=== PATIENT | female | born 1995 | race Caucasian/White ===

== ENCOUNTER 2019-08-04 12:04 | Outpatient (CLI) | payer OTHER, SELFPAY ==
[2019-08-04 13:01] LABS: RBC Urine None Seen (0-5/HPF)
[2019-08-04 13:02] LABS: Bilirubin Urine UA NEGATIVE (NEGATIVE); Color Urine UA YELLOW; Glucose Urine UA NEGATIVE (Negative); Ketones Urine UA NEGATIVE (NEGATIVE); Leukocyte Esterase Urine UA 2+ (NEGATIVE); Nitrite Urine UA NEGATIVE (Negative); Occult Blood Urine UA NEGATIVE (Negative); Protein Urine UA NEGATIVE (Negative); Urobilinogen Urine UA 0.2 E.U./dL (0.2)
[2019-08-04 13:03] LABS: Appearance Urine UA CLOUDY
[2019-08-04 13:11] LABS: Squamous Epithelial Cell Urine 10-30 /HPF (0-5/HPF); WBC Urine 1-5/HPF (0-5/HPF)
[2019-08-04 13:12] LABS: Amorphous Sediment Urine 2+; Bacteria Urine Moderate (10-30); Culture Indicated Urine Cult Not Indicated; Urine Comments CLUE CELLS
--- NOTE | 2019-08-04 13:30 | P.TNLD_ITS ---
Visit Information Visit Information Date of evaluation: 08/04/19 On-call OB Provider: Ranjana Robertson Reason for Evaluation: Yes non-stress test non-stress test reason: other (Possible vaginal bleeding) Review of Systems Review of Systems Narrative: Patient states that she had intercourse a couple days ago. Today she had 2 episodes of some red blood when she wiped after urinating. She has not had any bleeding since. No contractions. Good movement. No headaches, scotomata, epigastric pain. Patient did state she has some difficulty emptying her bladder earlier and mild burning with urination. ROS: Yes All systems reviewed with the patient and are negative except as otherwise documented Exam Vital Signs (past 8 hours): Blood pressure 120/72, pulse of 84, temperature 98.0? Narrative Exam Narrative: Abdomen is soft, nontender. Extremities without edema and nontender. Objective Labs Labs: Laboratory Results - last 24 hr 08/04/19 12:45 Urine Color Yellow Urine Appearance Cloudy Urine pH 7.0 Ur Specific [place] 1.010 Urine Protein Negative Urine Glucose (UA) Negative Urine Ketones Negative Urine Occult Blood Negative Urine Nitrate Negative Urine Bilirubin Negative Urine Urobilinogen 0.2 Ur Leukocyte Esterase 2+ H Urine RBC None seen Urine WBC 1-5/hpf Ur Squamous Epith Cells 10-30 /hpf H Amorphous Sediment 2+ Urine Bacteria Moderate (10-30) H Ur Culture Indicated? Cult not indicated Micro UA Comment Clue cells Evaluation Evaluation Baseline heart rate: 130 Variability: Moderate (11-25) monitor accelerations: Present monitor decelerations: Absent Contraction Frequency (minutes): 0 Category of Tracing: I Cervical dilation (cm): 0 Cervical effacement (%): 0 station: -4 Laboratory results: Laboratory Tests 08/04/19 12:45 Urine Color Yellow Urine Appearance Cloudy Urine pH 7.0 Ur Specific [place] 1.010 Urine Protein Negative Urine Glucose (UA) Negative Urine Ketones Negative Urine Occult Blood Negative Urine Nitrate Negative Urine Bilirubin Negative Urine Urobilinogen 0.2 Ur Leukocyte Esterase 2+ H Urine RBC None seen Urine WBC 1-5/hpf Ur Squamous Epith Cells 10-30 /hpf H Amorphous Sediment 2+ Urine Bacteria Moderate (10-30) H Ur Culture Indicated? Cult not indicated Micro UA Comment Clue cells Diagnosis, Plan/Disposition Final Diagnosis (1) Vaginal bleeding in : Current Visit: Yes Status: Acute Plan/Disposition Plan: Patient with 2 episodes of bright red blood when wiped after urinating no evidence of labor. Vaginal discharge is white without any red tinge to it. UA does not reveal any evidence of infection. Precautions reviewed with the patient to return for increasing abdominal pain, increased inch bleeding, decreased movement. OB Disposition: home
== END 2019-08-04 13:38 | disposition home or self-care (01) ==
LOC: LABOR 12:16 → OB 08-05 09:38
PROVIDERS: Referring Provider Specialist; Visit Provider Specialist
DX: O46.93 Antepartum hemorrhage, unspecified, third trimester (principal); Z3A.30 30 weeks gestation of pregnancy
CPT/HCPCS: 59025; 81001; G0378; G0379

== ENCOUNTER → 2019-09-10 08:36 | Outpatient (CLI) | payer OTHER, SELFPAY ==
[2019-09-11 10:27] LABS: Strep Grp B PCR NEG for Grp B Strep
== END ==
PROVIDERS: Visit Provider Obstetrics & Gynecology
DX: Z34.93 Encounter for supervision of normal pregnancy, unspecified, third trimester (principal); Z3A.36 36 weeks gestation of pregnancy
CPT/HCPCS: 87653

== ENCOUNTER → 2019-09-30 09:52 | Outpatient (CLI) | payer OTHER, SELFPAY ==
[2019-09-30 19:50] LABS: COVID19 Sendout Not Detected
== END ==
PROVIDERS: Visit Provider Registered Nurse
DX: Z34.90 Encounter for supervision of normal pregnancy, unspecified, unspecified trimester (principal)
CPT/HCPCS: 87635

== ENCOUNTER 2019-10-03 05:47 | Inpatient (IN) | payer OTHER, SELFPAY ==
--- NOTE | 2019-09-25 16:53 | P.HPOB_ITS ---
OB HPI History of Present Condition Chief complaint: [id number] REPEAT Narrative: Hilton Munguia is a 23 year old female with an ANDRES of 10/08/2019 by LMP and consistent with 11 week ultrasound who is being admitted at 39 weeks for repeat section. She has a history of a prior section for f etal intolerance of labor. She desired repeat section for delivery. Her has been uncomplicated. FORMERLY [facility], [facility] Medical History Eczema of both upper extremities (Acute) Post depression (Acute) Surgical History History of primary section (Acute ~2017) [place] teeth removed (Acute ~2017) Family History Father Household includes adoptive father Mother Twin Grandfather Myocardial infarction Grandmother No problems noted. Social History marital status: household members: children pets and animals: No education level: high school occupational status: unemployed current occupational exposures/hazards: No special crystal needs: No Smoking Status: Never smoker Meds Home Medications and Allergies Home Medications Medication Instructions Recorded Confirmed Type prenat.vits,pallavi,wjs-idht-wlwum 1 tab PO DAILY 08/13/19 09/25/19 History Allergies Allergy/AdvReac Type Severity Reaction Status Date / Time No Known Drug Allergies Allergy Verified 09/25/19 08:06 Exam Vital Signs (past 8 hours): BP 122/72 Narrative Exam Narrative: General: Well-appearing gravid female Heart: Regular rate rhythm, negative for audible murmur Lungs clear to auscultation bilaterally Abdomen gravid, nontender. Fundal height 39 cm. FHR auscultated in 120s. Fetus vertex by Dominic maneuver Extremities negative for edema Assessment and Plan Assessment and Plan Assessment and Plan narrative: 39 week . History of prior section. Plan: Repeat section scheduled for 10/02/2018. I reviewed no food after midnight, clear liquids okay up to 4 hours prior to the procedure SCDs in OR. Will give Ancef for preoperative prophylaxis. section procedure reviewed. Verbal and written consent obtained.
[2019-10-03 06:20] VITALS: BP 124/72
[2019-10-03 06:29] LABS: Add Manual Diff / Slide Review NO; Basophils Absolute Auto 0 /uL (0-100); Basophils Percent Auto 0.3 % (0-2); Eosinophils Absolute Auto 100 /uL (0-450); Eosinophils Percent Auto 0.8 % (2-4); Hematocrit 32.2 % (36-46); Hemoglobin 11.4 g/dL (12.0-16.0); Lymphocytes Absolute Auto 1600 /uL (1100-4500); Lymphocytes Percent Auto 16.2 % (25-40); Mean Corpuscular HGB Conc 35.5 % (30-36); Mean Corpuscular Hemoglobin 31.8 PG (26-34); Mean Corpuscular Volume 89.6 fL (80-100); Monocytes Absolute Auto 700 /uL (0-900); Monocytes Percent Auto 6.7 % (3-14); Neutrophils Absolute Auto 7600 /uL (1500-7000); Platelet Count 150 X10^3/uL (150-400); Red Blood Cell Count 3.59 X10^6/uL (4.0-5.2); Red Cell Distribution Width 13.6 % (11.6-14.8); White Blood Cell Count 10.1 X10^3/uL (4.5-11.0)
[2019-10-03] MEDS: LACTATED RINGERS 1,000 ML 100 ML IV ×2 (06:48→10:41)
--- NOTE | 2019-10-03 07:19 | PM.PREOP ---
Pre-operative Note Interval Note History & Physical reviewed/Exam performed by Physician: Yes Changes to H&P: No H&P completed within 30 days and has changed as indicated here:: No change in H&P. NST this am reactive, baseline 125, moderate variability, no decelerations
--- NOTE | 2019-10-03 07:24 | SUR.OPER ---
Supine on Padded OR bed, head on pillow, safety belt at thigh, arms secured on padded arm boards at <90 degrees abduction. Bump under right buttock. Legs uncrossed with pillow under knees, gel pad to heels, tape over blanket to lower legs.
[2019-10-03] MEDS: CEFAZOLIN 2 GM/100 ML FROZ.PIGGY IV (07:50)
[2019-10-03] MEDS: SODIUM CHLORIDE 0.9% 1,000 ML 100 ML IV (08:10)
--- NOTE | 2019-10-03 08:21 | SUR.OPER ---
Viable male delivered at 0813. Cord blood x2 and placenta sent with L&D RN, Tiana.
[2019-10-03] MEDS: ACETAMINOPHEN IV 1,000 MG/100 ML VIAL 400 MG IV (08:27)
[2019-10-03 09:10] VITALS: BP 116/56; PULSE 73; RESP 23; TEMP 36.1; O2SAT 97
--- NOTE | 2019-10-03 09:12 | PM.OP.1 ---
Operative Date/Time/Diagnoses Date of procedure: 10/03/19 Time of procedure: 09:12 Pre-op diagnosis: 39 week , prior , desired repeat for delivery Post-op diagnosis: same Procedure & Clinicians Procedure: Repeat lower transverse section Same procedure as scheduled: Yes Indications: Thirty-nine week , history of prior , desired repeat for delivery Surgeon: Meena Meadows Negative Developer: Ranjana Robertson Anesthesia Type: Spinal Operative Notes Findings: Viable baby boy delivered. Apgars 9 and 9. Weight 8lb3oz. Closure Type: primary Specimen(s): other (Cord blood to lab) Applied: catheter (Gallardo to gravity) Estimated Blood Loss (mL): 700 Blood products transfused: none Procedure in detail: IV fluids: 1800 ml crystalloid Urine output: 100 mL Description of procedure: The patient was transferred from the center to the operating room. Spinal anesthesia was placed by the anesthesiologist. She was placed in the supine position. FHR auscultated, was normal at 130 beats/minute after the spinal anesthesia. Gallardo catheter was placed and she was prepped and draped in routine sterile fashion. . Time-out was taken and the patient procedure was identified. Anesthesia level was tested and was adequate. A Pfannenstiel skin incision was made in the lower abdomen through her prior transverse skin incision and carried down to the level of the fascia. The fascia was incised in the midline and was extended transversely. The superior and inferior edges of the fascia were elevated and dissected off the rectus muscles with sharp and blunt dissection. The muscles were already with a diastasis and there was an opening in the peritoneum superiorly. The muscles were further with blunt dissection. The parietal peritoneum opening was further extended with blunt dissection. There was noted to be some bleeding from a vessel at the edge her upper left muscles where the peritoneum was adherent in this area. A uvhytu-oo-gfeuj suture of 3 0 Vicryl was placed and hemostasis obtained. The bladder blade was placed. The visceral peritoneum was elevated off the lower uterus, incised and the bladder flap was bluntly created. The bladder blade retractor was placed. The lower uterine segment was noted to be already somewhat thinned out, with the vertex palpable beneath it. A transverse incision was made in the lower uterus, with final entry performed bluntly with the finger. The incision was extended transversely with blunt dissection. Clear fluid was noted. The head was not engaged, floating. It was elevated to the uterine incision but could not be delivered through the incision with fundal assistance. The kiwi vacuum was placed and the head was then delivered with ease through the incision with the fundal pressure. Anterior and posterior shoulders followed by the body were delivered without difficulty with fundal assistance. The infant was bulb suctioned and cried spontaneously. Cord was clamped and cut and the was handed off to respiratory therapy who was present for delivery. Cord blood was obtained a specimen. The placenta was manually removed. It appeared intact with a normal three-vessel cord. The uterus was swept clean of adherent clots and membranes. The uterus was brought through the abdominal incision and closed in 2 layers with 0 Vicryl, the 1st layer being in running locking continuous fashion and the 2nd layer being in a vertical imbricating type fashion. There was some persistent light bleeding at the left edge of the incision which was controlled with a cfpmiu-zh-xgfez suture of 0 Vicryl. Hemostasis was noted. The tubes and ovaries were inspected and noted to be normal. Posterior to the uterus was suction of some minimal fluid and blood. The uterus was placed back into the maternal abdomen. The paracolic gutters were inspected and wiped of some minimal blood and fluid. The anterior cul-de-sac was inspected and some minimal clot was removed. The uterine incision was re- inspected. There was some persistent light bleeding just inferior, adjacent to the incision on the left, in an area of a small superficial separation in the uterine muscle in this area. Hemostasis was obtained after placing a vfgksv-oz-jeaxg suture of 3 Vicryl. The pelvis was irrigated. Repeat inspection showed continued hemostasis. The abdomen was closed. The muscles were reapproximated with 3 interrupted sutures of 0 Vicryl. The fascia was closed with running continuous suture of 0 Vicryl. The subcutaneous tissue was irrigated. Hemostasis was noted. The subcutaneous tissue was reapproximated by reapproximating Akila's fashion with running 3-0 Vicryl. The skin was closed with a subcuticular suture of 4-0 Monocryl. Steri-Strips and sterile Aquacel dressing was placed. She tolerated the procedure well and went to the recovery room in stable condition. Complications: none Post-operative Condition: stable Disposition: PACU Plan for aftercare: She will be transferred to the Center for routine postoperative care/ care.
[2019-10-03 09:15] VITALS: BP 115/63; PULSE 70; RESP 13; TEMP 36.2; O2SAT 96
[2019-10-03 09:20] VITALS: BP 113/67; PULSE 63; RESP 12; TEMP 36.1; O2SAT 96
[2019-10-03 09:25] VITALS: BP 129/70; PULSE 67; RESP 19; TEMP 36.1; O2SAT 97
[2019-10-03 09:36] VITALS: BP 121/72; PULSE 64; RESP 16; TEMP 36.1; O2SAT 98
--- NOTE | 2019-10-03 09:47 | SUR.PHASEI ---
Patient taken to center with all belongings. Left in stable condition with receiving RN at bedside.
[2019-10-03] MEDS: miSOPROStoL 200 MCG TABLET 1000 MCG PR (10:45)
[2019-10-03] MEDS: METHYLERGONOVINE 0.2 MG/ML VIAL IM (11:32)
[2019-10-03] MEDS: TRANEXAMIC ACID 1,000 MG in SODIUM CHLORIDE 0.9% 100 ML 400 ML IV ×2 (11:33→12:51)
[2019-10-03] MEDS: CARBOPROST 250 MCG/ML AMPUL IM ×2 (11:47→12:53)
[2019-10-03] MEDS: ONDANSETRON 4 MG/2 ML INJ IV (12:05)
[2019-10-03] MEDS: LACTATED RINGERS 500 ML 1000 ML IV (12:06)
[2019-10-03 12:13] LABS: Add Manual Diff / Slide Review NO; Basophils Absolute Auto 0 /uL (0-100); Basophils Percent Auto 0.2 % (0-2); Eosinophils Absolute Auto 0 /uL (0-450); Eosinophils Percent Auto 0.1 % (2-4); Hematocrit 33.7 % (36-46); Hemoglobin 11.5 g/dL (12.0-16.0); Lymphocytes Absolute Auto 1100 /uL (1100-4500); Lymphocytes Percent Auto 6.9 % (25-40); Mean Corpuscular Hemoglobin 31.5 PG (26-34); Mean Corpuscular Volume 92.4 fL (80-100); Monocytes Absolute Auto 800 /uL (0-900); Monocytes Percent Auto 4.8 % (3-14); Neutrophils Absolute Auto 13700 /uL (1500-7000); Platelet Count 162 X10^3/uL (150-400); Red Blood Cell Count 3.65 X10^6/uL (4.0-5.2); Red Cell Distribution Width 13.5 % (11.6-14.8); White Blood Cell Count 15.6 X10^3/uL (4.5-11.0)
[2019-10-03 12:28] LABS: Prothrombin Time 11.2 SECONDS (10.1-12.7)
[2019-10-03 12:31] LABS: PTT Partial Thromboplastin Tim 46 SECONDS (26.4-36.2)
--- NOTE | 2019-10-03 13:52 | PM.PNPO.1 ---
Subjective Subjective Date Patient Seen: 10/03/19 Time Patient Seen: 10:30 Interval history: I was on floor, notified this patient had heavier than normal vaginal bleeding, soon after coming from the PACU, after her repeat section delivery this a.m. I have been here since that time. At the time of her surgery after the placenta delivered her uterus was fairly atonic, but responded well to uterine massage and routine IV oxytocin. A dose of Methergine 0.2 mg IM was also given in the OR. Her uterus was closed and there was good hemostasis. Her lower uterine segment had felt somewhat boggy after placement of the 1st layer on the uterus and massage of the lower uterine segment was performed. Since she had a little oozing in a few areas of the uterine incision, the Methergine was also given at that time. After the 2nd layer was placed and 2 itnyqm-ul-xkubn sutures, she had excellent hemostasis on the uterus and overall and the abdomen was closed. With fundal pressure before leaving the OR, she only had a small amount of blood expressed. Digital vaginal exam showed no additional blood clots. On receiving her on the floor, the nurse noted a large amount of blood on her pad with several clots. She subsequently soaked 2 half pads as well. On exam her fundus was firm, U -1 which was lower than in the OR. Digital exam showed a 2 cm dilated cervical os with some small clot palpated at the cervical os. With fundal pressure a small amount of clot only was obtained and small amount of additional blood. However with observation she did have some constant trickling of bright red blood. She was already on oxytocin IV, 20 units in her IV fluids. I gave the patient misoprostol 1000 mcg per rectum, followed by tranexamic acid g IV when she continued with heavier than normal bleeding, going through a half a pad every 10-15 minutes. Blood through the vagina also intermittently visualized trickling out. Hemabate 250 mcg given and an additional dose of Methergine 0.2 mg IM given at 11:30 a.m. Repeat vaginal exam, cervix still felt approximately 2 cm dilated. I no longer felt any clots with sleeping a finger through the cervix. Bleeding was never heavy again likely initial large amount on the pad but due to intermittent trickling, heavier than normal lochia, she subsequently also received a 2nd dose of tranexamic acid 1 g IV and additional Hemabate 250 mcg at same time. Her IV access needed to be replaced, prior to her 1st TXA dose. At this time to IVs were placed, an 18 gauge and a 20 gauge IV. Labs were drawn off the IV at that time which included CBC, PT PTT. Her hemoglobin was stable at 11.4, plts were 162, stable. PT 11.2 (normal), PTT 46 (mildly elevated). Patient had an episode of nausea with emesis after the Hemabate which improved after Zofran. Otherwise she has felt well throughout this time. Vaginal bleeding/lochia appears normal now. Vital signs have remained normal. Last VS Temp 100.1 (s/p hemabate), BP 125/76 Pulse 74. RR 16 Impression: hemorrhage, status post . Estimated additional blood loss approximately 800 mL Plan: Repeat hemogram at 3:00 p.m. for new baseline Continue close observation. Will continue Methergine for 24 hours. Toradol discontinued. Marco A Gallardo catheter in until a.m. Exam Vital Signs (past 8 hours): - 10/03/19 06:20 10/03/19 09:10 10/03/19 09:15 Temperature 97.0 F L 97.2 F L Pulse Rate 73 70 Respiratory Rate 23 13 Blood Pressure 124/72 116/56 L 115/63 Pulse Oximetry 97 96 10/03/19 09:20 10/03/19 09:25 10/03/19 09:36 Temperature 97.0 F L 96.9 F L 97.0 F L Pulse Rate 63 67 64 Respiratory Rate 12 19 16 Blood Pressure 113/67 129/70 121/72 Pulse Oximetry 96 97 98 Oxygen Delivery Method Room Air Narrative Exam Narrative: General: Well-appearing female Abdomen: Soft, nontender, nondistended. Fundus U -1, firm Vaginal exam is cervix 2 cm dilated, no clots currently palpable at the cervical os. No clots in the vagina. On pad bleeding is now only minimal amount over last 30+ minutes. Now normal lochia Objective Labs Result Diagrams: 10/03/19 11:20 Labs: Laboratory Results - last 24 hr 10/03/19 10/03/19 10/03/19 06:05 06:05 11:20 WBC 10.1 RBC 3.59 L Hgb 11.4 L Hct 32.2 L MCV 89.6 MCH 31.8 MCHC 35.5 RDW 13.6 Plt Count 150 Neut % (Auto) 76.0 H Lymph % (Auto) 16.2 L [place] % (Auto) 6.7 Eos % (Auto) 0.8 L Baso % (Auto) 0.3 Neut # (Auto) 7600 H Lymph # (Auto) 1600 [place] # (Auto) 700 Eos # (Auto) 100 Baso # (Auto) 0 PT 11.2 INR 1.0 APTT 46 H Blood Type A Positive Antibody Screen Negative Crossmatch See Detail 10/03/19 11:20 WBC 15.6 H D RBC 3.65 L Hgb 11.5 L Hct 33.7 L MCV 92.4 MCH 31.5 MCHC 34.0 RDW 13.5 Plt Count 162 Neut % (Auto) 88.0 H Lymph % (Auto) 6.9 L [place] % (Auto) 4.8 Eos % (Auto) 0.1 L Baso % (Auto) 0.2 Neut # (Auto) 72366 H Lymph # (Auto) 1100 [place] # (Auto) 800 Eos # (Auto) 0 Baso # (Auto) 0 PT INR APTT Blood Type Antibody Screen Crossmatch Assessment & Plan Post-op Assessment and plan (1) hemorrhage, delivered: Assessment and Plan narrative: Improved. Patient stable. Continue Methergine every 6 hours for 24 hours. Toradol discontinued. Continue close observation. If her bleeding continues to remain normal, then will let her resume a normal diet. Leave Gallardo in until the a.m.. Postoperative Procedures: Procedures Operation Date: 10/03/19 07:45 Actual Procedures Side Surgeon p Repeat Section Meena Meadows MD Time Spent With Patient Time with patient: Greater than 35 minutes
[2019-10-03 17:16] LABS: Hematocrit 28.8 % (36-46); Mean Corpuscular HGB Conc 34.8 % (30-36); Mean Corpuscular Hemoglobin 31.1 PG (26-34); Mean Corpuscular Volume 89.3 fL (80-100); Platelet Count 143 X10^3/uL (150-400); Red Blood Cell Count 3.23 X10^6/uL (4.0-5.2); Red Cell Distribution Width 13.5 % (11.6-14.8); White Blood Cell Count 13.5 X10^3/uL (4.5-11.0)
[2019-10-03] MEDS: diphenhydrAMINE 50 MG/ML VIAL 25 MG IV (22:29)
[2019-10-04] MEDS: IBUPROFEN 600 MG TABLET PO ×2 (06:37→13:00)
[2019-10-04 06:47] LABS: Hematocrit 26.1 % (36-46); Hemoglobin 9.4 g/dL (12.0-16.0)
--- NOTE | 2019-10-04 14:31 | PM.OBPN.1 ---
Subjective - OB Subjective Patient comments: no complaints, pain well controlled and tolerating diet baby status: doing well and nursing well feeding status: exclusively breast feeding Narrative: Hilton reports that she feels well. Gallardo catheter removed this a.m. and she has ambulated twice to the bathroom, voided twice without problems. Lochia has now remained normal. Ambulating without problems. Tolerating a regular diet, no nausea. No flatus yet. Denies fever or chills. Date Patient Seen: 10/04/19 Time Patient Seen: 08:50 Exam Vital Signs (past 8 hours): T max 100.0 immediately postop, last temp 99.4, BP 124/75, pulse 80, RR 18 Oxygen Delivery Method Room Air Narrative Exam Narrative: General: Well-appearing female Abdomen: Soft, nontender, nondistended. Dressing dry, intact. No erythema noted around the dressing or otherwise. Fundus U-1, firm, nontender Extremities: Trace pedal edema. No calf tenderness Objective Labs Result Diagrams: 10/04/19 06:29 Labs: Laboratory Results - last 24 hr 10/03/19 10/04/19 16:18 06:29 WBC 13.5 H RBC 3.23 L Hgb 10.0 L 9.4 L Hct 28.8 L 26.1 L MCV 89.3 D MCH 31.1 MCHC 34.8 RDW 13.5 Plt Count 143 L Assessment & Plan Assessment and Plan (1) S/P repeat low transverse : Start date: 10/03/19 Status: Acute Assessment and plan: POD 1, doing well today. Awaiting GI return. Only using ibuprofen for incisional discomfort. She desires discharge to home today if able, since home with her daughter, and due to Covid 19 situation/risk. Will see how she does through the day, and if continues to do well, then will discharge home. Advised her to increase ambulation. Current Visit: Yes (2) hemorrhage, delivered: Status: Acute Assessment and plan: No further heavy bleeding, since controlled with medication yesterday. Lochia has remained normal. I suspect likely the cause was an atonic lower uterine segment, however she did have a mildly elevated PTT, despite only a mildly low H/H, and now reports possible history of some heavier bleeding status post her 1st . Will plan on rechecking her PT/PTT at a subsequent visit. Current Visit: Yes Plan day: 1 plan OB: routine postop care Time Spent With Patient Time: Total time spent is greater than 50% in coordination of care (as documented) at patient's floor/unit and/or counseling patient: Time with patient: 15-24 minutes
--- NOTE | 2019-10-04 15:59 | PM.DS.1 ---
History of Present Illness History of Present Illness Date Patient Seen: 10/04/19 Time Patient Seen: 15:30 Chief complaint: [id number] REPEAT Narrative: 24-year-old G2, now P2 female was admitted on 10/03/2019 for a repeat lower transverse section. Discharge Providers Provider Date of admission: 10/03/19 05:47 Discharge Date: 10/04/19 Consults: 10/03/19 09:52 Consult to Passport Application Examiner Routine Comment: Discharge provider: Meena Meadows MD Summary Hospital Course Discharge Diagnosis: 1.Term , delivered by repeat section 2. hemorrhage, controlled with medication Hospital Course: Repeat section procedure went without complications. Soon after reaching the floor however she had an , episode of heavier bleeding with clots, this ceased but she persisted with some heavier than normal flow, going through pads more quickly. Her uterus was firm, but in the OR she was noted to have a somewhat boggy lower uterine segment thus possibility bleeding was from at knee in this area, versus other postop bleeding. Bleeding became controlled after treatment with several utero tonics and tranexamic acid. Her IV Pitocin was continued. She was also given misoprostol, tranexamic acid, Methergine and Hemabate. Bleeding then decreased to normal. Her initial hemoglobin during the episode was same as preop, then a few hours later had decreased from her baseline of 11.5 to 10. Postop day 1, she had equilibrated to hemoglobin 9.4. PTT was normal, but PTT was mildly elevated. She did not have any recurrence heavier bleeding. Lochia has now remained light. She felt well throughout the episode except for some nausea and brief emesis after the Hemabate. She did not have any lightheadedness. She continues to feel well now on postoperative day 1. Lochia is normal. She is ambulating without difficulty. She is tolerating regular diet. She has had flatus. She is only using ibuprofen for incisional discomfort, and does not desire any narcotic for possible use if needed for discomfort at home. She desires discharge to home today on postoperative day 1. Status at Discharge Cognitive/behavioral status at discharge: oriented Functional status at discharge: independent ambulation Overall status at discharge: patient is progressing back to baseline Time Spent with Patient Time spent: Less than 30 minutes (approximately 20 minutes spent with the patient) Exam Vital Signs (past 8 hours): Afebrile. BP 124/75, pulse 80, respiratory rate 18 Oxygen Delivery Method Room Air Narrative Exam Narrative: General: Well-appearing female Abdomen soft, nontender, nondistended Dressing is dry and intact. No erythema seen above the dressing. Uterine fundus U -1, firm, nontender Extremities negative for edema. No calf tenderness Objective Labs Result Diagrams: 10/04/19 06:29 Labs: Laboratory Results - last 24 hr 10/03/19 10/04/19 16:18 06:29 WBC 13.5 H RBC 3.23 L Hgb 10.0 L 9.4 L Hct 28.8 L 26.1 L MCV 89.3 D MCH 31.1 MCHC 34.8 RDW 13.5 Plt Count 143 L Discharge Plan Discharge Plan Patient Disposition: Home Discharge comment: Follow-up appointment scheduled with me for 10/11/2019 for an incision check. Discharge orders & Medications Prescriptions: New ibuprofen 800 mg tablet 800 mg PO Q8H PRN (Reason: pain) Qty: 60 RF: 1 Continued prenat.vits,pallavi,qol-prbt-vehkb Tablet 1 tab PO DAILY RF: 0 Follow up/Referrals: Meena Meadows MD [Physician] - Discharge Health Status Multidrug resistant organism: No MDRO Diet/Activity/Treatments Diet: Regular Activity: Nothing in the vagina, no tampons or intercourse for 6 weeks. No heavy lifting--nothing heavier than 10 lbs, for 6 weeks. Skin/Wound/Dressing Care Report to your healthcare provider any signs of infection, such as:: chills, fever, increased pain and unusual redness Dressing: Leave on until your appointment in 1 week. Other wound treatment: Call if notice persistent redness above the dressing.
== END 2019-10-04 17:00 | disposition home or self-care (01) | DRG 787 ==
PROVIDERS: Admitting Provider Obstetrics & Gynecology; Referring Provider Obstetrics & Gynecology; Visit Provider Obstetrics & Gynecology
PROC: 10D00Z1 Extraction of Products of Conception, Low, Open Approach (ICD-10-PCS; CPT 59514; principal; 2019-10-03 07:45)
DX: O34.219 Maternal care for unspecified type scar from previous cesarean delivery (principal); O72.1 Other immediate postpartum hemorrhage; Z3A.39 39 weeks gestation of pregnancy; Z37.0 Single live birth
CPT/HCPCS: 36415; 59050; 59410; 59514; 85014; 85018; 85025; 85027; 85610; 85730; 86850; 86900; 86901; J0131; J0690; J1200; J2210; J2274; J2405; S0191